=== PATIENT | female | born 1980 | race African-American/Black ===

== ENCOUNTER 2018-06-03 16:47 | Emergency (ER) | payer MEDICAID ==
[~2018-06-03] VITALS: Ht 170.2 cm; Wt 70.3 kg
[~2018-06-03 16:47] MED LIST: BACTRIM-DS1 EA PO; NKM
[2018-06-03 16:52] VITALS: BP 126/77
[2018-06-03] MEDS ORDERED: ERYTHROMYCIN3.5 GM BOTH EYES (17:30)
[2018-06-03] MEDS ORDERED: OLOPATADINE HCL5 ML OP (17:30)
--- NOTE | 2018-06-03 17:30 | Emergency Room Report ---
History of Present Illness General Chief Complaint: Eye Problems Source: Patient Present Illness HPI 38-year-old female patient presents the ER complaining of bilateral eye drainage times 1 week. Reports eye drainage is yellow in color. Reports pain and itchiness during this time. Reports does not wear contact lenses. Reports eyes were previously red however she used [id number] eyedrops that have since resolved the redness however the discharge continues to appear every morning. denies fever. Denies sore joints. Denies pain with urination. Denies fever, chest pain, shortness of breath. Denies other aggravating or relieving factors. Denies exposure to chemicals in eyes. Allergies: Coded Allergies: No Known Allergies (Unverified , 06/03/18) Patient History Past Medical History: see triage record Last Menstrual Period: CURRENTLY Reviewed Nursing Documentation: PMH: Agreed; PSxH: Agreed Nursing Documentation-PMH Past Medical History: No Stated History Review of Systems All Other Systems: negative except mentioned in HPI Physical Exam Vital Signs Date Time Temp Pulse Resp B/P (MAP) Pulse Ox O2 Delivery O2 Flow Rate FiO2 06/03/18 16:52 98.1 80 16 126/77 99 Room Air Sp02 EP Interpretation: reviewed, normal General Appearance: well appearing, no apparent distress, alert, GCS 15, non- toxic Head: normocephalic, atraumatic Eyes: bilateral eye normal inspection, bilateral eye PERRL, bilateral eye EOMI ENT: hearing grossly normal, normal pharynx, no angioedema, normal voice, uvula midline, moist mucus membranes Neck: full range of motion Respiratory: lungs clear, normal breath sounds, no rhonchi, no respiratory distress, no accessory muscle use, no wheezing, speaking full sentences Cardiovascular #1: regular rate, rhythm, no edema Gastrointestinal: non tender, soft, no mass, non-distended, no guarding, no rebound Genitourinary: no CVA tenderness Musculoskeletal: back normal, digits/nails normal, gait/station normal, normal range of motion, non-tender Neurologic: alert, oriented x3, responsive, motor strength/tone normal, sensory intact Psychiatric: mood/affect normal Skin: no rash Lymphatic: no adenopathy Medical Decision Making PA Attestation Dr. Shetty is my supervising Physician whom patient management has been discussed with. Diagnostic Impression: Primary Impression: Conjunctivitis ER Course Pt. presents to the ED c/o eye pain, itching and drainage x1week. Ddx considered but are not limited to allergic conjunctivitis, viral conjunctivitis, bacterial conjunctivitis, periorbital cellulitis, URI, sinusitis , keratitis, glaucoma, Jason syndrome. No reduction in VA, no ciliary flush, no photophobia, no FB sensation, no corneal opacity, low suspicion for keratitis, iritis. No PATRICIO, no vomiting, no fixed pupil, no reduction of VA, no ciliary flush, low suspicion for angle closure glaucoma. See nurses note for visual acuity. Vital signs: are WNL, pt. is afebrile Patient has no signs of surrounding cellulitis, no pain with eye movement, does not require imaging at this time. ER COURSE: Signs and symptoms consistent with conjunctivitis. Due to length of symptoms, will cover patient with abx for possible bacterial infection. F/u with ophthalmology. F/u with help desk assistant. ER precautions given. DISCHARGE: Rx provided for Erythromycin ointment. Informed patient to apply to both eyes. Rx provided for oliopatadine At this time pt. is stable for d/c to home. Patient is resting comfortably, in no acute distress, nontoxic appearing, talking and smilng without difficulty. Will provide printed patient care instructions, and any necessary prescriptions. Patient instructed to follow up with glass products inspector and discuss further follow up with ophthamology and help desk assistant. Care plan and follow up instructions have been discussed with the patient prior to discharge. Patient questions asked and answered. Patient reports undestanding and agreement to treatment plan. ER precautions given. Patient instructed to return to ER immediately for any new or worsening of symptoms including but not limited to vision loss, fever, changes in vision. - Please note that this Emergency Department Report was dictated using [employer] applications clerk technology software, occasionally this can lead to erroneous entry secondary to interpretation by the dictation equipment. Last Vital Signs Date Time Temp Pulse Resp B/P (MAP) Pulse Ox O2 Delivery O2 Flow Rate FiO2 06/03/18 16:52 98.1 80 16 126/77 99 Room Air Disposition: HOME, SELF-CARE Condition: Stable Scripts Olopatadine HCl (Olopatadine HCl) 5 Ml Drops 5 ML OP BID, #5 ML Prov: Gwyn Johnson.Vandana 06/03/18 Erythromycin Base (ERYTHROMYCIN*) 3.5 Gm Oint...g. 1 APPLIC BOTH EYES BID for 7 Days, #3.5 GM 0 Refills Prov: Gwyn Johnson 06/03/18 Patient Instructions: Bacterial Conjunctivitis, [id number], Viral Conjunctivitis Additional Instructions: Follow-up with help desk assistant and brass polisher in 24-48 hours. Followup with primary care provider in 3 -5 days. Take medications as directed. Patient questions asked and answered. ER precautions given, patient instructed to return to ER immediately for any new or worsening of symptoms. Gwyn Johnson Jun 03, 2018 17:30
--- NOTE | 2018-06-03 17:40 | NUR ---
ED Nurse Note: Pt was seen due to burning on bilateral eyes. Pt cleared by [facility] provider for discharge. ACI/prescription given and explained to pt and verbalized understanding of teachings provided. All medical devices such as ID band removed. Pt is AAO x4, ambulatory and left with all personal belongings.
== END 2018-06-03 17:40 | disposition home or self-care (01) ==
LOC: EMR 17:36
DX: H10.9 Unspecified conjunctivitis (principal)
CPT/HCPCS: 99282